=== PATIENT | male | born 1945 | race Hispanic/Latino ===

== ENCOUNTER 2017-09-05 06:47 | Inpatient (IN) | payer MEDICARE ==
[~2017-09-05] VITALS: Ht 175.3 cm; Wt 82.4 kg
[2017-09-05] VITALS (22 sets, daily range): BP systolic 122–163; BP diastolic 60–94
[2017-09-05] MEDS ORDERED: BUPIVACAINE/PF 0.5% 30ML VIAL ONE (10:19)
[2017-09-05] MEDS ORDERED: ACETAMINOPHEN 325 MG TAB PO PRN ×2 (10:30)
[2017-09-05] MEDS ORDERED: MORPHINE SULFATE 2 MG/ML 1ML SYG IV PRN (10:30)
[2017-09-05] MEDS ORDERED: GUAIFENESIN-DM 200/20 MG 10 ML PO PRN (10:30)
[2017-09-05] MEDS ORDERED: ONDANSETRON HCL 4 MG/2 ML VIAL IV PRN (10:30)
[2017-09-05] MEDS ORDERED: ACETAMINOPHEN-CODEINE 300/30MG TAB PO PRN (10:30)
[2017-09-05] MEDS: MEROPENEM 500 MG VIAL IVP SCH ×3 (10:45→21:02)
[2017-09-05] MEDS ORDERED: MEROPENEM 500MG+NS 50ML 50 ML IV SCH (10:45)
[2017-09-05] MEDS ORDERED: MIDAZOLAM HCL 1 MG/ML 2ML VIAL ONE (10:46)
[2017-09-05] MEDS ORDERED: CEFOXITIN SODIUM 1 GM VIAL ONE (10:46)
[2017-09-05] MEDS ORDERED: FENTANYL CITRATE PF 50 MCG/1 ML 5ML AMP IV ONE (10:47)
[2017-09-05] MEDS ORDERED: LIDOCAINE HCL MPF 1% 5ML VIAL ONE (12:17)
[2017-09-05] MEDS ORDERED: NEOSTIGMINE METHYLSULFATE 1MG/ML IV ONE (12:17)
[2017-09-05] MEDS ORDERED: ONDANSETRON HCL 4 MG/2 ML VIAL ONE (12:17)
[2017-09-05] MEDS ORDERED: ROCURONIUM BROMIDE 10MG/1ML 5ML VL ONE (12:17)
[2017-09-05] MEDS ORDERED: DEXAMETHASONE SOD PHOSPHATE 10MG/ML 1ML VIAL ONE (12:17)
[2017-09-05] MEDS ORDERED: GLYCOPYRROLATE 0.2 MG/ML 5 ML VIAL ONE (12:17)
[2017-09-05] MEDS: SODIUM CHLORIDE 0.9% 1000ML 1,000 ML IV SCH ×2 (15:58→21:03)
[2017-09-05] MEDS ORDERED: LINA145C PO (16:08)
[2017-09-05] MEDS ORDERED: TAMS0.4C32 PO (16:08)
[2017-09-05] MEDS ORDERED: FINA5TAB41 PO (16:08)
[2017-09-05] MEDS ORDERED: LORA1TAB3 PO (16:08)
[2017-09-05] MEDS: FAMOTIDINE/PF 20 MG/2 ML VIAL IV SCH (21:02)
[2017-09-06] VITALS: BP 133/84
[2017-09-06 04:00] VITALS: BP 147/83
[2017-09-06] MEDS: MEROPENEM 500 MG VIAL IVP SCH ×2 (05:08→13:59)
[2017-09-06 05:21] LABS: MEAN CORPUSCULAR HEMOGLOBIN 28.5 pg (27.0-33.0); MEAN CORPUSCULAR HGB CONC 34.1 g/dL (32.0-36.0); MEAN CORPUSCULAR VOLUME 83.4 fL (79-99); PLATELET COUNT (AUTO) 191 K/uL (130-400); RED BLOOD CELL COUNT(AUTO) 4.92 MIL/uL (4.50-6.20); RED CELL DISTRIBUTION WIDTH 14.7 % (11.0-15.5); WHITE BLOOD COUNT (AUTO) 13.9 K/uL (4.8-10.8)
[2017-09-06 05:29] LABS: BILIRUBIN,TOTAL 1.4 mg/dL (0.2-1.0); CREATININE 0.9 mg/dL (0.5-1.5); POTASSIUM 4.1 mmol/L (3.5-5.1); TOTAL PROTEIN, SERUM 7.3 g/dL (6.0-8.3)
[2017-09-06] MEDS: SODIUM CHLORIDE 0.9% 1000ML 1,000 ML IV SCH (06:28)
[2017-09-06 07:12] VITALS: BP 148/77
[2017-09-06] MEDS: FAMOTIDINE/PF 20 MG/2 ML VIAL IV SCH (08:39)
[2017-09-06 11:00] VITALS: BP 138/92
[2017-09-06 15:38] VITALS: BP 157/89
== END 2017-09-06 17:49 | disposition home or self-care (01) | DRG 418 ==
LOC: 4AH 07:47
PROVIDERS: ADMIT Family Medicine; ATTEND Family Medicine
PROC: 0FT44ZZ Resection of Gallbladder, Percutaneous Endoscopic Approach (ICD-10-PCS; principal; 2017-09-05 11:01)
DX: K81.0 Acute cholecystitis (principal); E44.1 Mild protein-calorie malnutrition; K66.8 Other specified disorders of peritoneum; N40.0 Benign prostatic hyperplasia without lower urinary tract symptoms; F41.9 Anxiety disorder, unspecified
CPT/HCPCS: 36415; 80053; 85027; 88304; A4218; J0694; J1100; J2185; J2250; J2405; J2710; J3010; J3490; J7030